=== PATIENT | female | born 1950 | race Caucasian/White ===

== ENCOUNTER 2016-06-04 08:06 | Day surgery (SDC) | payer BC ==
[~2016-06-04] VITALS: Ht 152.4 cm; Wt 80.0 kg
[2016-06-04 09:13] VITALS: Ht 152.4 cm; Wt 80.0 kg
[2016-06-04] MEDS ORDERED: RANITIDINE (09:21)
[2016-06-04] MEDS ORDERED: VITAMIN D (09:21)
[2016-06-04] MEDS ORDERED: METOPROLOL (09:21)
[2016-06-04] MEDS ORDERED: GABAPENTIN (09:21)
[2016-06-04] MEDS ORDERED: LEVOTHYROXINE (09:21)
[2016-06-04] MEDS ORDERED: ATORVASTATIN (09:21)
[2016-06-04] MEDS ORDERED: LOSARTAN (09:21)
[2016-06-04 09:25] VITALS: BP 135/80; PULSE 84; RESP 18
[2016-06-04] MEDS ORDERED: LIDOCAINE 2% (SDV) 5 ML INJ ONE (09:45)
[2016-06-04] MEDS ORDERED: MIDAZOLAM 1 MG/ML 2 ML INJ ONE (09:45)
[2016-06-04] MEDS ORDERED: PROPOFOL 20 ML ONE (09:45)
[2016-06-04] MEDS ORDERED: FENTAnyl 50 MCG/ML VIAL ONE (09:46)
[2016-06-04 10:50] VITALS: BP 102/70; PULSE 62; RESP 19
--- NOTE | 2016-06-04 11:49 | GILP ---
DATE OF PROCEDURE: 06/04/2016 NAME OF PROCEDURES: 1. Esophagogastroduodenoscopy and biopsy. 2. Colonoscopy and biopsy. SURGEON: Aliya Daly MD PREOPERATIVE DIAGNOSES: 1. Abdominal pain. 2. Chronic heartburn. 3. Screening colonoscopy. POSTOPERATIVE DIAGNOSES: 1. Gastroesophageal reflux disease. 2. Gastritis with erosions. 3. Biopsy was positive for Helicobacter pylori infection. 4. Colonoscopy all the way to the cecum. 5. Multiple small polyps were removed using the biopsy forceps. 6. Internal hemorrhoids. INDICATION FOR THE PROCEDURE: Ms. Clare Pierre is a 65-year-old female patient who had upper abdomi nal pain and chronic heartburn, not responding to therapy. The patient also needed screening colono scopy. The procedures and possible complications were well explained to the patient, she understood and con sented to the procedure. DESCRIPTION OF PROCEDURE: Under the influence of anesthesia, the gastroscope was carefully introduc ed into the esophagus and under direct vision, it was advanced to the stomach and through the pyloru s into the duodenal bulb and descending duodenum. FINDINGS: ESOPHAGUS: The patient had gastroesophageal reflux disease. STOMACH: She had gastritis with erosions and biopsy was positive for Helicobacter pylori infection. DUODENUM: Normal. The colonoscope was carefully introduced in the rectum and under direct vision, it was advanced all the way to the cecum. FINDINGS: The patient had multiple small polyps and they were removed using the biopsy forceps. Th e patient was noted to have internal hemorrhoids. She tolerated the procedures very well and there was no complication from the procedures. At the en d of the procedures, she was awake with stable vital signs and she was discharged home to the care o f her family. IMPRESSION: Please see postoperative diagnosis. PLAN: 1. Nexium 24 hours p.o. q.a.m. 2. Doxycycline 100 mg p.o. b.i.d. for 14 days. 3. Flagyl 500 mg p.o. b.i.d. for 14 days. 4. Pepto-Bismol 2 tablets p.o. q.i.d. for 14 days. 5. Await histopathology reports. 6. Next screening colonoscopy in 3 years. Dictated By: ALIYA ALEXANDRE/YOLANDA Conf#: [id number] DID#: [id number] CC: ALIYA DALY MD;*End*
== END 2016-06-04 12:01 | disposition home or self-care (01) ==
LOC: GIL 08:06
PROVIDERS: ATTEND Internal Medicine Gastroenterology
DX: Z12.11 Encounter for screening for malignant neoplasm of colon (principal); D12.6 Benign neoplasm of colon, unspecified; K64.8 Other hemorrhoids; K21.9 Gastro-esophageal reflux disease without esophagitis; K29.60 Other gastritis without bleeding; I10 Essential (primary) hypertension; E11.9 Type 2 diabetes mellitus without complications; I25.10 Atherosclerotic heart disease of native coronary artery without angina pectoris
CPT/HCPCS: 43239; 45380; 82962; 87081; 88305; J2250; J3010; Z7610